=== PATIENT | female | born 1970 | race Caucasian/White ===

== ENCOUNTER 2017-01-03 20:55 | Emergency (ER) | payer BC ==
[~2017-01-03] VITALS: Ht 165.1 cm; Wt 75.0 kg
[~2017-01-03 20:55] MED LIST: ERYT1OIN6 BOTH EYES; PRED50TA PO; THYR60TA
[2017-01-03 21:00] VITALS: Ht 165.1 cm; Wt 75.0 kg
[2017-01-03] MEDS ORDERED: ACETAMINOPHEN 500 MG TAB PO STA (22:26)
[2017-01-03] MEDS ORDERED: IBUPROFEN 600 MG TAB PO ONE (22:30)
--- NOTE | 2017-01-03 22:31 | ERD ---
ER Documentation Chief Complaint Date/Time DATE: 01/03/17 TIME: 22:30 Chief Complaint COUGH AND TROUBLE BREATHING X 2 WEEKS. HX BREAST CA HPI 46-year-old female presents to emergency department for complaints of cough shortness of breath and wheezing for 2 weeks. Patient has been having on and off fever. Patient has history of asthma but does not have any inhaler. Patient denies any sick contacts, recently diagnosed with breast cancer, currently not on any treatment at this time. Patient denies any sick contacts. Patient denies any recent travel. Patient did not take any medications to help with symptoms. ROS All systems reviewed and are negative except as per history of present illness. Medications Home Meds Active Scripts Ibuprofen* (Motrin*) 600 Mg Tab, 600 MG PO Q6H Y for PAIN AND OR ELEVATED TEMP, #30 TAB Prov:LICO ROSALES NP 01/04/17 Prednisone* (Prednisone*) 50 Mg Tablet, 50 MG PO DAILY for 5 Days, TAB Prov:LICO ROSALES NP 01/04/17 Albuterol Sulfate* (Proair HFA*) 8.5 Gm Hfa.aer.ad, 2 PUFF INH Q4H Y for WHEEZING AND SOB, #1 INHALER Prov:LICO ROSALES NP 01/04/17 Gdlmnvdoahv-Q-Jicrxdgknc Hb* (Guaifenesin* DM Syrup) 120 Ml Syrup, 10 ML PO Q4H Y for COUGH, #120 ML Prov:LICO ROSALES NP 01/04/17 Azithromycin* (Zithromax*) 250 Mg Tablet, 250 MG PO .ZPACK DIRECTED, #6 TAB TAKE 500 MG (2 TABS) THE FIRST DAY THEN 250 MG (1 TAB) DAYS 2-5 Prov:LICO ROSALES NP 01/04/17 Prednisone* (Prednisone*) 50 Mg Tablet, 50 MG PO DAILY, #5 TAB Prov:JOSE D MORENO PA-C 07/12/15 Erythromycin (Erythromycin Opth) 3.5 Gm Oint..gm., 1 APPLIC BOTH EYES QID for 7 Days, EA Prov:JOSE D MORENO PA-C 07/12/15 Reported Medications Thyroid,Pork ([place] Thyroid) 60 Mg Tablet 09/25/10 Allergies Allergies: Coded Allergies: codeine (Verified Allergy, Mild, 01/03/17) PMhx/Soc History of Surgery: No Anesthesia Reaction: No Hx Neurological Disorder: No Hx Respiratory Disorders: Yes (CHILDHOOD ASTHMA) Hx Cardiac Disorders: No Hx Psychiatric Problems: No Hx Miscellaneous Medical Probl: Yes (hypothyroid; BREAST CA DX 2017.) Hx Alcohol Use: No Hx Substance Use: No Hx Tobacco Use: No Smoking Status: Never smoker FmHx Family History: No coronary disease, No diabetes, No other Physical Exam Vitals Vital Signs Date Time Temp Pulse Resp B/P Pulse Ox O2 Delivery O2 Flow Rate FiO2 01/04/17 00:25 95 18 97 21 01/03/17 21:00 100.9 84 22 123/84 99 Physical Exam GENERAL: The patient is well developed and appropriate for usual state of health, in no apparent distress. CHEST: Clear to auscultation bilaterally. There are no rales, wheezes or rhonchi. HEART: Regular rate and rhythm. No murmurs, clicks, rubs or gallops. No S3 or S4. ABDOMEN: Soft, nontender and nondistended. Good bowel sounds. No rebound or guarding. No gross peritonitis. No gross organomegaly or masses. No Yu sign or McBurney point tenderness. BACK: No midline or flank tenderness. EXTREMITIES: Equal pulses bilaterally. There is no peripheral clubbing, cyanosis or edema. No focal swelling or erythema. Full range of motion. Grossly neurovascularly intact. NEURO: Alert and oriented. Cranial nerves 2-12 intact. Motor strength in all 4 extremities with 5/5 strength. Sensation grossly intact. Normal speech and gait. SKIN: There is no apparent rash or petechia. The skin is warm and dry. HEMATOLOGIC AND LYMPHATIC: There is no evidence of excessive bruising or lymphedema. No gross cervical, axillary, or inguinal lymphadenopathy. Results 24 hrs Current Medications Medications (Trade) Dose Ordered Sig/Archelle Route PRN Reason Start Time Stop Time Status Last Admin Dose Admin Acetaminophen (Tylenol Tab) 500 mg ONCE STAT PO 01/03/17 22:26 01/03/17 22:28 DC 01/03/17 22:39 Ibuprofen (Motrin) 600 mg ONCE ONCE PO 01/03/17 22:30 01/03/17 22:31 DC 01/03/17 22:39 Albuterol (Proventil 0.083% (Neb)) 5 mg ONCE ONCE NEB 01/04/17 00:19 01/04/17 00:20 DC 01/04/17 00:25 Ipratropium [place] (Atrovent 0.02% (Neb)) 0.5 mg ONCE ONCE NEB 01/04/17 00:19 01/04/17 00:20 DC 01/04/17 00:25 Patient was given medicines for fever control here in the emergency department. After treatment, patient temperature improved and lower. Patient appears well and is hemodynamically stable. Breathing treatment of albuterol and Atrovent was given here in emergency department, after treatment, patient's lungs sounds are clear and patient's oxygenation is better. Patient verbalized feeling much better. PROCEDURE: XR Chest. CLINICAL INDICATION: Cough TECHNIQUE: AP Portable chest. COMPARISON: None available FINDINGS: The soft tissues and bones are normal. No focal infiltrates, masses, or effusions are noted. Hyperinflation is present . The mediastinum and heart are normal. No pneumothorax is present. IMPRESSION: 1. No radiographic evidence for acute cardiopulmonary disease 2. Hyperinflation and correlate with reactive airway disease RPTAT: HDC .Griselda Francisco MD, MD Date Time Electronically viewed and signed by .Griselda Francisco MD, MD on 01/04/2017 00: 03 .C/ CC: LICO ROSALES [employer]ATOR Procedures/MDM Medical Decision Making: Patient symptoms are most likely consistent with acute bronchitis with acute asthma exacerbation, which atypical infection possibly. There is low suspicion for Pneumonia at this time since patients lungs sounds are clear, patient O2 saturation is normal and patient doesnt show any respiratory distress. Patients chest xray doesnt show infiltrates or any other cardiopulmonary emergencies at this time. There is low suspicion for other cardiopulmonary emergencies at this time such as CHF, Pulmonary Embolism, Pneumothorax, Aortic Aneurysm or any other cardiopulmonary emergencies at this time. There is low suspicion for sepsis. Patient appears well and is hemodynamically stable. Fever is controlled with medicines. Disposition: Home. Condition: Stable Prescriptions: Azithromycin, prednisone, albuterol, guaifenesin with DM Zyrtec Instructions: Patient is advised to take medications as prescribed. Patient is advised to rest. Patient advised to increase fluid intake, do humidifier at home and if possible, do salt water gargles. Patient is advised that if symptoms are worse, shortness of breath, uncontrolled fever, stridor, vomiting, worst signs and symptoms to return to emergency department immediately. Otherwise, patient is advised to follow up with primary doctor in 5-7 days. Departure Diagnosis: Primary Impression: Acute bronchitis Bronchitis organism: unspecified organism Qualified Code: J20.9 - Acute bronchitis, unspecified organism Additional Impression: Asthma exacerbation Condition: Stable Patient Instructions: Bronchitis, Antiobiotic Treatment (Adult) Additional Instructions: Patient is advised to take medications as prescribed. Patient is advised to rest. Patient advised to increase fluid intake, do humidifier at home and if possible, do salt water gargles. Patient is advised that if symptoms are worse, shortness of breath, uncontrolled fever, stridor, vomiting, worst signs and symptoms to return to emergency department immediately. Otherwise, patient is advised to follow up with primary doctor in 5-7 days. LICO ROSALES NP January 03, 2017 22:31
--- NOTE | 2017-01-04 00:03 | RADRPT ---
PROCEDURE: XR Chest. CLINICAL INDICATION: Cough TECHNIQUE: AP Portable chest. COMPARISON: None available FINDINGS: The soft tissues and bones are normal. No focal infiltrates, masses, or effusions are noted. Hyperi nflation is present . The mediastinum and heart are normal. No pneumothorax is present. IMPRESSION: 1. No radiographic evidence for acute cardiopulmonary disease 2. Hyperinflation and correlate with reactive airway disease RPTAT: HDC .Griselda Francisco MD, MD Date Time Electronically viewed and signed by .Griselda Francisco MD, MD on 01/04/2017 00:03 .C/
[2017-01-04] MEDS ORDERED: IBUP-1542 PO (00:17)
[2017-01-04] MEDS ORDERED: GUAI120S26 PO (00:17)
[2017-01-04] MEDS ORDERED: ALBU8.5H3 INH (00:17)
[2017-01-04] MEDS ORDERED: AZIT250T94 PO (00:17)
[2017-01-04] MEDS ORDERED: PRED50TA PO (00:17)
[2017-01-04] MEDS ORDERED: ALBUTEROL 0.083% (NEB) 2.5 MG/3 ML AMP NEB ONE (00:19)
[2017-01-04] MEDS ORDERED: IPRATROPIUM (NEB) 0.5 MG/2.5 ML AMP NEB ONE (00:19)
[2017-01-04 01:05] VITALS: BP 120/83; PULSE 70; RESP 20; TEMP 100
== END 2017-01-04 01:05 | disposition home or self-care (01) ==
LOC: FTE 20:55
DX: J20.9 Acute bronchitis, unspecified (principal); J45.901 Unspecified asthma with (acute) exacerbation; Z85.3 Personal history of malignant neoplasm of breast
CPT/HCPCS: 71010; 94664; 99284; Z7610

== ENCOUNTER 2017-09-03 04:57 | Emergency (ER) | END 2017-09-03 07:52 | disposition home or self-care (01) ==

== ENCOUNTER 2017-10-17 18:30 | Emergency (ER) | END 2017-10-18 01:10 | disposition home or self-care (01) ==

== ENCOUNTER 2018-07-09 05:42 | Inpatient (IN) | END 2018-07-10 14:30 | disposition home or self-care (01) | DRG 202 ==

== ENCOUNTER 2018-08-17 12:06 | Day surgery (SDC) | payer BC ==
[~2018-08-17] VITALS: Ht 165.1 cm; Wt 89.1 kg
[~2018-08-17 12:06] MED LIST changes: +ALBU8.5H8 INH; -ERYT1OIN6 BOTH EYES; +GABA100C14 PO; +GUAI120S26 PO; +LEVO500T48 PO; +LEVO88TA42 PO; +NOL20 PO; -PRED50TA PO; -THYR60TA
[2018-08-17 12:49] VITALS: Ht 165.1 cm; Wt 89.1 kg
[2018-08-17 13:29] VITALS: BP 125/70; PULSE 59; RESP 18
[2018-08-17] MEDS ORDERED: FENTAnyl 50 MCG/ML VIAL ONE (14:43)
[2018-08-17] MEDS ORDERED: MIDAZOLAM 1 MG/ML 2 ML INJ ONE ×2 (14:43→14:44)
[2018-08-17 14:55] VITALS: BP 126/66; PULSE 62; RESP 11
== END 2018-08-17 17:14 | disposition home or self-care (01) ==
LOC: GIL 12:06
PROVIDERS: ATTEND Internal Medicine Gastroenterology
DX: Z12.11 Encounter for screening for malignant neoplasm of colon (principal); D12.4 Benign neoplasm of descending colon; K64.8 Other hemorrhoids; K22.10 Ulcer of esophagus without bleeding; K44.9 Diaphragmatic hernia without obstruction or gangrene; K21.0 Gastro-esophageal reflux disease with esophagitis; I10 Essential (primary) hypertension; J45.909 Unspecified asthma, uncomplicated
CPT/HCPCS: 43239; 45380; J2250; J3010; Z7610; 88305; 88312; 88313